=== PATIENT | male | born 1995 | race Caucasian/White ===

== ENCOUNTER 2024-10-16 12:00 | Emergency (ER) | payer OTHER ==
[~2024-10-16] VITALS: Ht 175.3 cm; Wt 72.6 kg
[2024-10-16 12:02] VITALS: BP 126/68
[2024-10-16 12:38] LABS: PLATELET COUNT (AUTO) 201 K/uL (152-348); RED BLOOD CELL COUNT(AUTO) 5.11 MIL/uL (4.06-5.63); RED CELL DISTRIBUTION WIDTH 12.7 % (12.1-16.2); WHITE BLOOD COUNT (AUTO) 7.1 K/uL (3.6-10.2)
[2024-10-16 12:44] LABS: CREATININE 1.0 mg/dL (0.6-1.3); SODIUM SERUM 141.0 mmol/L (136-145); UREA NITROGEN, BLOOD 14.0 mg/dL (7-18)
[2024-10-16] MEDS ORDERED: ALBU6.7H9 INH (13:18)
[2024-10-16] MEDS ORDERED: GUAI5SYR4 PO (13:18)
[2024-10-16 13:38] VITALS: BP 122/64; TEMP 98; O2SAT 98
== END 2024-10-16 13:30 | disposition home or self-care (01) ==
LOC: ER 12:00
DX: J20.9 Acute bronchitis, unspecified (principal); R07.9 Chest pain, unspecified
CPT/HCPCS: 36415; 71045; 85025; A4606; A4663